=== PATIENT | male | born 1975 | race Caucasian/White ===

== ENCOUNTER 2018-01-03 00:30 | Emergency (ER) | payer BC ==
[~2018-01-03] VITALS: Ht 182.9 cm; Wt 115.7 kg
[~2018-01-03 00:30] MED LIST: NORCO 5-325 TA1 EACH PO
== END 2018-01-03 01:36 | disposition home or self-care (01) ==
LOC: ED 00:30
DX: S93.402A Sprain of unspecified ligament of left ankle, initial encounter (principal); W22.8XXA Striking against or struck by other objects, initial encounter; Z87.891 Personal history of nicotine dependence
CPT/HCPCS: 73610; 99283

== ENCOUNTER 2020-11-20 13:41 | Emergency (ER) | payer BC ==
[~2020-11-20] VITALS: Ht 182.9 cm; Wt 115.7 kg
== END 2020-11-20 16:28 | disposition home or self-care (01) ==
LOC: ED 13:41
DX: R10.9 Unspecified abdominal pain (principal); R11.0 Nausea; Z87.891 Personal history of nicotine dependence; Z88.0 Allergy status to penicillin
CPT/HCPCS: 74176; 80053; 81001; 83690; 85025; 96374; 96375; 99284-25; J1885; J2405

== ENCOUNTER 2021-08-27 08:54 | Emergency (ER) | payer BC ==
[~2021-08-27] VITALS: Ht 182.9 cm; Wt 115.7 kg
== END 2021-08-27 11:46 | disposition home or self-care (01) ==
LOC: ED 08:54
DX: N20.1 Calculus of ureter (principal); N21.0 Calculus in bladder; Z87.891 Personal history of nicotine dependence; Z88.0 Allergy status to penicillin
CPT/HCPCS: 74176; 80053; 81001; 85025; 96374; 96375; 99284-25; J1170; J1885; J2405

== ENCOUNTER 2022-12-17 07:07 | Emergency (ER) | payer BC ==
[~2022-12-17] VITALS: Ht 182.9 cm; Wt 121.6 kg
[2022-12-17] MEDS ORDERED: FLOMAX0.4 MG PO (07:16)
--- NOTE | 2022-12-18 07:44 | EKG ---
[facility] [address] [facility] [place] [address] Signed Normal sinus rhythm Normal ECG No previous ECGs available Confirmed by RONI ALBARADO MD ([id number] on 12/18/2022 7:44:31 AM Electronically Signed By: RONI ALBARADO MD 12/18/22 0744 PATIENT NAME: LOIDA GUPTA Electrocardiogram DATE OF : 73 PHYSICIAN: RONI ALBARADO MD REPORT #: [id number] REPORT IS CONFIDENTIAL AND NOT TO BE RELEASED WITHOUT AUTHORIZATION
== END 2022-12-17 09:30 | disposition home or self-care (01) ==
LOC: ED 07:07
DX: M54.6 Pain in thoracic spine (principal); Z87.891 Personal history of nicotine dependence; Z88.0 Allergy status to penicillin; Z88.1 Allergy status to other antibiotic agents; Z79.899 Other long term (current) drug therapy
CPT/HCPCS: 36415; 71275; 80053; 83735; 84484; 85025; 93005; 93010; 99284-25; A9270; Q9967

== ENCOUNTER 2024-10-02 19:11 | Emergency (ER) | payer BC ==
[~2024-10-02] VITALS: Ht 182.9 cm; Wt 123.5 kg
[~2024-10-02 19:11] MED LIST changes: +FLOMAX0.4 MG PO
[2024-10-02] MEDS ORDERED: LIDOCAINE 2% VISCOUS 6 ML SYR TOP ONE ×2 (19:45)
[2024-10-02 20:07] LABS: BILIRUBIN, URINE NEGATIVE (negative); BLOOD/HGB, URINE LARGE (Negative); KETONE, URINE NEGATIVE (Negative); LEUK ESTERASE, URINE NEGATIVE (negative); NITRITE, URINE NEGATIVE (negative)
[2024-10-02 20:12] LABS: EPITHELIAL CELLS, URINE SQUAMOUS 1+ /lpf (0-1+)
[2024-10-02 20:13] LABS: BACTERIA, URINE RARE /hpf (negative); CASTS, URINE NONE SEEN \\lpf; COLLECTION TYPE, URINE CLEAN CATCH; CRYSTALS, URINE NONE SEEN (0-1+); RED BLOOD CELLS, URINE >50 /hpf (0-5); REFLEX CULTURE, URINE No (No)
[2024-10-02 20:30] VITALS: BP 135/91
== END 2024-10-02 20:45 | disposition home or self-care (01) ==
LOC: ED 19:11
PROVIDERS: Internal Medicine
DX: N99.89 Other postprocedural complications and disorders of genitourinary system (principal); R33.8 Other retention of urine; Z87.891 Personal history of nicotine dependence; Z88.0 Allergy status to penicillin; Z79.899 Other long term (current) drug therapy
CPT/HCPCS: 81001

== ENCOUNTER 2025-09-01 08:41 | Emergency (ER) | payer BC ==
[~2025-09-01] VITALS: Ht 182.9 cm; Wt 127.9 kg
[2025-09-01] MEDS ORDERED: LIDOCAINE 2% VISCOUS 6 ML SYR TOP ONE (09:00)
[2025-09-01 09:26] LABS: BLOOD/HGB, URINE MODERATE (Negative); KETONE, URINE NEGATIVE (Negative); LEUK ESTERASE, URINE NEGATIVE (negative); NITRITE, URINE NEGATIVE (negative)
[2025-09-01 09:33] LABS: EPITHELIAL CELLS, URINE 0 /lpf (0-1+)
[2025-09-01 09:34] LABS: BACTERIA, URINE NONE SEEN /hpf (negative); CASTS, URINE NONE SEEN \\lpf; CRYSTALS, URINE NONE SEEN (0-1+); REFLEX CULTURE, URINE No (No)
[2025-09-01 09:47] LABS: BASOPHILS 0.5 % (0.2-1.2); EOSINOPHILS 0.4 % (0.8-7.0); LYMPHOCYTES 10.8 % (21.8-53.1); MCH 28.1 PG (25.7-32.2); MCHC 34.1 g/dL (32.3-36.5); MCV 82.5 fL (79.0-92.2); MONOCYTES 5.1 % (5.3-12.2); NEUTROPHILS 82.8 % (34.0-67.9); RBC 5.30 M/uL (4.63-6.08)
[2025-09-01 10:19] LABS: ALT (SGPT) 17.0 U/L (14-59); AST (SGOT) 10.0 U/L (15-37); GLOMERULAR FILTRATION RATE,EST 104.0 mL/min (>60); PROTEIN, TOTAL 7.5 g/dL (6.4-8.2); UREA NITROGEN 12.0 mg/dL (7-18)
[2025-09-01 10:24] VITALS: BP 137/96
== END 2025-09-01 10:24 | disposition home or self-care (01) ==
LOC: ED 08:41
PROVIDERS: Emergency Medicine
DX: R33.9 Retention of urine, unspecified (principal); Z87.891 Personal history of nicotine dependence; Z79.899 Other long term (current) drug therapy
CPT/HCPCS: 36415; 51702; 51798; 80053; 81001; 84153; 85025; 99284; A4311; G0103

== ENCOUNTER 2025-09-04 11:05 | Emergency (ER) | payer BC ==
[~2025-09-04] VITALS: Ht 182.9 cm; Wt 126.8 kg
--- OUTSIDE RECORDS SUMMARY | 2025-09-04 11:12 | XMS ---
PreManage Notification: LOIDA GUPTA [employer] Events No recent Security Events currently on file CRITERIA MET - [facility] - 2 Visits in 30 Days CARE PROVIDERS There are no care providers on record at this time. Yvonne has no Care Guidelines for this patient. [place] [facility] NOTE: Visits indicate total known visits. ED/C VISIT TRACKING (12 MO.) [facility] COMPLAINT: - BLOOD IN URINE 09/01/2025 08:42 [facility] [place] TYPE: Emergency COMPLAINT: - URINE PROBLEM DIAGNOSES: - Other alf (current) drug therapy - Personal history of nicotine dependence - Retention of urine, unspecified 10/02/2024 19:11 [facility] [place] TYPE: Emergency COMPLAINT: - POST OP PROBLEM DIAGNOSES: - Allergy status to penicillin - Other alf (current) drug therapy - Other postprocedural complications and disorders of genitourinary system - Other retention of urine - Personal history of nicotine dependence - Retention of urine, unspecified INPATIENT VISIT TRACKING (12 MO.) No inpatient visits to display in this time frame [email or web address]
[2025-09-04] MEDS ORDERED: LIDOCAINE 2% VISCOUS 6 ML SYR ONE (12:31)
[2025-09-04 12:53] LABS: BLOOD/HGB, URINE LARGE (Negative); KETONE, URINE NEGATIVE (Negative); LEUK ESTERASE, URINE LARGE (negative); NITRITE, URINE NEGATIVE (negative)
[2025-09-04] MEDS ORDERED: LIDOCAINE 2% VISCOUS 6 ML SYR TOP ONE (13:00)
[2025-09-04 13:05] LABS: BACTERIA, URINE 1+ /hpf (negative); CASTS, URINE NONE SEEN \\lpf; CRYSTALS, URINE NONE SEEN (0-1+); EPITHELIAL CELLS, URINE TRANSITIONAL 1+ /lpf (0-1+); REFLEX CULTURE, URINE Yes (No)
[2025-09-04] MEDS ORDERED: CEPHALEXIN500 M1 PO (13:26)
[2025-09-04] MEDS ORDERED: CEPHALEXIN MONOHYDRATE 500 MG CAP PO ONE (13:30)
[2025-09-04 13:41] VITALS: BP 136/81
== END 2025-09-04 13:41 | disposition home or self-care (01) ==
LOC: ED 11:05
PROVIDERS: Emergency Medicine
DX: T83.031A Leakage of indwelling urethral catheter, initial encounter (principal); Z87.442 Personal history of urinary calculi; Z87.891 Personal history of nicotine dependence
CPT/HCPCS: 81001; 87088; 99283; A9270